=== PATIENT | female | born 1930 | race Two or more races ===

== ENCOUNTER 2020-06-19 09:01 | Emergency (ER) | payer OTHER ==
[~2020-06-19] VITALS: Ht 165.1 cm; Wt 68.0 kg
== END 2020-06-19 12:08 | disposition home or self-care (01) ==
LOC: ER 09:01
DX: S42.031A Displaced fracture of lateral end of right clavicle, initial encounter for closed fracture (principal); S00.83XA Contusion of other part of head, initial encounter; W06.XXXA Fall from bed, initial encounter; Y93.89 Activity, other specified; Y92.013 Bedroom of single-family (private) house as the place of occurrence of the external cause; Y99.8 Other external cause status